=== PATIENT | female | born 1985 | race Caucasian/White ===

== ENCOUNTER 2019-09-06 18:40 | Emergency (ER) | payer OTHER ==
[~2019-09-06] VITALS: Ht 142.2 cm; Wt 81.8 kg
[2019-09-06 18:52] VITALS: Ht 142.2 cm; Wt 81.8 kg
[2019-09-06] MEDS ORDERED: TOPAMAX50 MG PO (18:54)
[2019-09-06 19:17] LABS: BASOPHILS 0.2 % (0-2); EOSINOPHILS 2.3 % (0-7); HEMATOCRIT 39.2 % (36.0-48.0); IMMATURE GRANULOCYTES 0.2 % (0-5); LYMPHOCYTES 34.3 % (15-50); MCHC 33.2 g/dL (31.0-37.0); MCV 93.6 fL (80.0-100.0); MEAN PLATELET VOLUME 9.8 fL (7.4-10.4); MONOCYTES 8.5 % (2-11); NEUTROPHILS 54.5 % (40-80); PLATELET COUNT 324 10x3/uL (130-400); RBC 4.19 10x6/uL (4.00-5.40); RDW 12.3 % (11.5-14.5); WBC 9.4 10x3/uL (4.8-10.8)
[2019-09-06 19:23] LABS: BILIRUBIN NEGATIVE (NEGATIVE); GLUCOSE NEGATIVE (NEGATIVE); KETONE NEGATIVE (NEGATIVE); NITRITE NEGATIVE (NEGATIVE); UROBILINOGEN NORMAL (NORMAL)
[2019-09-06 19:24] LABS: BACTERIA FEW /hpf (NEGATIVE); EPITHELIAL CELLS 0-5 /hpf (0-5); RED CELLS - URINE OCC /hpf (0-5); WHITE CELLS - URINE 0-5 /hpf (NEGATIVE)
[2019-09-06 19:42] LABS: CALC OSMOLALITY 277 mosm/kg (275-300); CALCIUM 8.3 mg/dL (8.5-10.1); CARBON DIOXIDE 23.2 mmol/L (21.0-32.0); CHLORIDE - SERUM 108 mmol/L (98-107); GLUCOSE 98 mg/dL (74-106); POTASSIUM - SERUM 3.8 mmol/L (3.5-5.1); SODIUM 140 mmol/L (136-145); UREA NITROGEN 9 mg/dL (7-18); eGFR NON AFRICAN AMERICAN 68 mL/min (90-120)
[2019-09-06 19:44] LABS: HCG URINE NEGATIVE (NEGATIVE)
[2019-09-06 19:51] LABS: ALBUMIN 3.6 g/dL (3.4-5.0); ALKALINE PHOSPHATASE 62 U/L (30-120); ALT (SGPT) 63 U/L (10-68); AMYLASE - SERUM 56 U/L (25-115); BILIRUBIN - TOTAL 0.23 mg/dL (0.2-1.3); LIPASE 131 U/L (73-393); PROTEIN - SERUM 7.1 g/dL (6.4-8.2)
[2019-09-06 19:53] LABS: TROPONIN-I < 0.017 ng/mL (0.000-0.060)
[2019-09-06] MEDS ORDERED: KEFLEX500 MG PO (19:57)
[2019-09-06] MEDS ORDERED: MACROBID100 MG PO (19:57)
[2019-09-06] MEDS ORDERED: MECLIZINE HCL25 MG PO (20:02)
[2019-09-06] MEDS ORDERED: DIFLUCAN100 MG PO (20:02)
[2019-09-06 20:12] VITALS: BP 142/86
== END 2019-09-06 20:12 | disposition home or self-care (01) ==
LOC: D.ER 18:40
PROVIDERS: Family Medicine
DX: R11.2 Nausea with vomiting, unspecified (principal); R42 Dizziness and giddiness; R19.7 Diarrhea, unspecified; T37.3X5A Adverse effect of other antiprotozoal drugs, initial encounter